=== PATIENT | female | born 1945 | race Caucasian/White ===

== ENCOUNTER 2018-08-16 13:58 | Emergency (ER) | payer BC ==
[~2018-08-16] VITALS: Ht 165.1 cm; Wt 74.8 kg
[~2018-08-16 13:58] MED LIST: ADULT LOW DOSE81 MG PO; CITRACAL + D C1 EACH PO; GLUCOSAMINE S1000 M2 PO; PRAVACHOL40 MG PO; PRILOSEC OTC20 MG PO
== END 2018-08-16 15:47 | disposition home or self-care (01) ==
LOC: ED 13:58
DX: M79.662 Pain in left lower leg (principal); R20.2 Paresthesia of skin; E78.00 Pure hypercholesterolemia, unspecified
CPT/HCPCS: 93971; 99283-25